=== PATIENT | female | born 1945 | race Caucasian/White ===

== ENCOUNTER → 2021-11-13 | Outpatient (CLI) | payer MEDICARE ==
[~2021-11-13] MED LIST: AMLODIPINE BESYL5 MG PO; AUGMENTIN 875-1 EACH PO; BENTYL 20MG TAB20 MG PO; COQ-10100 MG PO; CRESTOR5 MG PO; LOPRESSOR 25 MG25 MG PO; ZOFRAN ODT 4 MG4 MG PO
== END ==
LOC: RAD 09:37
DX: U07.1 COVID-19 (principal); J12.82 Pneumonia due to coronavirus disease 2019
CPT/HCPCS: 71046

== ENCOUNTER 2021-12-01 18:44 | Observation (INO) | payer MEDICARE, OTHER ==
[~2021-12-01] VITALS: Ht 154.9 cm; Wt 83.5 kg
[~2021-12-01 18:44] MED LIST changes: +AMLODIPINE BES2.5 MG PO; -AMLODIPINE BESYL5 MG PO
[2021-12-01 20:27] LABS: HEMOGLOBIN 12.8 gm/dl (12.3-15.3); RED BLOOD COUNT 4.14 M/UL (4.00-5.10); WHITE BLOOD COUNT 7.3 K/UL (4.5-11.0)
[2021-12-02] MEDS ORDERED: PROBIOTIC1 EAC1 PO (11:14)
[2021-12-02] MEDS ORDERED: FLONASE 0.05% N16 GM (11:14)
[2021-12-02] MEDS ORDERED: SYMBICORT 16010.2 GM INH (11:14)
[2021-12-02] MEDS ORDERED: LISINOPRIL40 MG PO (11:14)
[2021-12-03 16:41] LABS: HEMOGLOBIN 11.5 gm/dl (12.3-15.3); RED BLOOD COUNT 3.75 M/UL (4.00-5.10); WHITE BLOOD COUNT 8.7 K/UL (4.5-11.0)
[2021-12-04] MEDS ORDERED: ELIQUIS5 M1 PO (10:21)
== END 2021-12-04 13:26 | disposition home or self-care (01) ==
LOC: ER1 18:44 → CDU 12-02 07:06 → MED SURG 4 12-02 07:06
PROVIDERS: Emergency Medicine; Internal Medicine Pulmonary Disease; ADMIT Internal Medicine
DX: I26.99 Other pulmonary embolism without acute cor pulmonale (principal); E04.1 Nontoxic single thyroid nodule; I10 Essential (primary) hypertension; E66.9 Obesity, unspecified; E04.9 Nontoxic goiter, unspecified; E11.9 Type 2 diabetes mellitus without complications; Z86.16 Personal history of COVID-19; Z85.528 Personal history of other malignant neoplasm of kidney; Z90.5 Acquired absence of kidney; Z68.30 Body mass index [BMI] 30.0-30.9, adult; Z90.710 Acquired absence of both cervix and uterus; Z90.49 Acquired absence of other specified parts of digestive tract; Z88.1 Allergy status to other antibiotic agents; Z79.01 Long term (current) use of anticoagulants; Z20.822 Contact with and (suspected) exposure to COVID-19
CPT/HCPCS: ECHO; 0240U; 36415; 80048; 80053; 81001; 82550; 82553; 83690; 83735; 83880; 84100; 84484; 85025; 85610; 85730; 93005; 93306; 93970; 94664; 96374; 99285; G0378; J0696; J1644; Q9967

== ENCOUNTER → 2021-12-21 | Outpatient (CLI) | payer MEDICARE ==
[~2021-12-21] MED LIST changes: +ELIQUIS5 M1 PO; +FLONASE 0.05% N16 GM; +LISINOPRIL40 MG PO; +PROBIOTIC1 EAC1 PO; +SYMBICORT 16010.2 GM INH
== END ==
LOC: HEART 5 10:10
DX: J18.9 Pneumonia, unspecified organism (principal); U09.9 Post COVID-19 condition, unspecified; R06.02 Shortness of breath; R91.8 Other nonspecific abnormal finding of lung field
CPT/HCPCS: 71046; 94010; 94729

== ENCOUNTER → 2022-01-11 | Outpatient (CLI) | payer MEDICARE | LOC: MAMO 14:00 | DX: E04.1 Nontoxic single thyroid nodule (principal); Z12.31 Encounter for screening mammogram for malignant neoplasm of breast; I26.99 Other pulmonary embolism without acute cor pulmonale | CPT/HCPCS: 76536; 77063; 77067 ==

== ENCOUNTER → 2022-01-20 | Outpatient (CLI) | payer MEDICARE | LOC: EXRD 14:37 | DX: N18.9 Chronic kidney disease, unspecified (principal) | CPT/HCPCS: 76775 ==

== ENCOUNTER → 2022-02-11 | Outpatient (CLI) | payer MEDICARE | LOC: KOH-I 12:46 | DX: J18.9 Pneumonia, unspecified organism (principal) | CPT/HCPCS: 71250 ==

== ENCOUNTER → 2022-03-05 | Outpatient (CLI) | payer MEDICARE | LOC: MAMO 10:00 | DX: R92.8 Other abnormal and inconclusive findings on diagnostic imaging of breast (principal); E04.1 Nontoxic single thyroid nodule | CPT/HCPCS: 76641-LT; 77065; G0279 ==